=== PATIENT | male | born 1930 | race Asian ===

== ENCOUNTER 2018-05-16 15:56 | Inpatient (IN) | payer OTHER ==
--- NOTE | 2018-05-16 16:10 | PDOC ---
Rapid Medical Evaluation Chief Complaint: Headache Time Seen by Provider: 05/16/18 16:09 Medical Evaluation: 05/16/18 16:09 I have performed a brief in-person evaluation of this patient. The patient presents with a chief complaint of: Severe lower abd pain w/ constipation. H/o cystole, rectocele, hysterectomy Pertinent physical exam findings:sig ttp o lower abd diffusely I have ordered the following:labs, abd XR The patient will proceed to the ED for further evaluation.
[2018-05-16 16:13] VITALS: BMI 26.6
--- NOTE | 2018-05-16 16:13 | PDOC ---
Rapid Medical Evaluation Chief Complaint: Headache Time Seen by Provider: 05/16/18 16:09 Medical Evaluation: 05/16/18 16:11 I have performed a brief in-person evaluation of this patient. The patient presents with a chief complaint of: HEART and nausea today. H/o HTN, HLD, BPH, also on creon for unclear reason Pertinent physical exam findings:BP 188/93, chest/lungs clear, non focal I have ordered the following:labs, CTH The patient will proceed to the ED for further evaluation. Discharge Disposition - Diagnosis Headache Qualifiers: Headache type: unspecified Headache chronicity pattern: acute headache Intractability: intractable Qualified Code(s): R51 - Headache - Referrals - Patient Instructions - Post Discharge Activity
--- NOTE | 2018-05-16 16:58 | PDOC ---
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 He originally had a a hemorrhagic CVA two years prior in [place] then one year later with the same headache and other symptoms onset. He states that he feels the same way today and is concerned that it could be a bleed again. Describes his headache as posterior, sharp, 7/10, and non radiating. His friend at bedside states that his speech is a little bit slurred to her and his legs are weak. He never had any neurosurgical intervention. Denies fevers, chills, nausea, vomiting, diarrhea, constipation, or other symptoms. 05/16/18 17:34 tPA Exclusion checklist 3-4.5h - Thrombolytic Therapy Candidate Is patient eligible for thrombolytic therapy: No - Ineligibility reason(s) Reasons No tPA given: Outside of window - delayed arrival (Woke up at 5 AM. Fell asleep.) NIH Stroke Scale - Last Known Well Date/Time & Onset Date Last Known Well: 05/15/18 (Prior to bed) Time Last Known Well: 22:00 - Initial Evaluation Level of consciousness: Alert Ask patient the month and their age: Answers both correctly Ask patient to open & close eyes; make fist and let go: Obeys both correctly Best gaze (horizontal eye movement): Normal Visual field testing: No visual field loss Facial paresis (Show teeth/raise eyebrows/close eyes tight): Normal symmetrical movement Motor Function: Left Arm: Normal Motor Function: Right Arm: Normal (extends arm 90 (or 45) degrees for 10 seconds without drift Motor Function: Left Leg: Normal (extends leg 30 degrees for 5 seconds without drift) Motor Function: Right Leg: Normal (extends leg 30 degrees for 5 seconds without drift) Limb Ataxia: No ataxia Sensory(Use pinprick test arms,legs,trunk,face/side to side): Normal Best language (Describe picture, name items, read sentences): Mild to moderate aphasia Dysarthria (read several words): Normal articulation Extinction and Inattention: No abnormality (Does not speak romansh but had choker hooker) - Total Score NIH Stroke Scale Score: 1 Past History - Past Medical History Allergies/Adverse Reactions: Allergies Allergy/AdvReac Type Severity Reaction Status Date / Time No Known Allergies Allergy Verified 05/16/18 16:43 COPD: No GI Disorders: Yes ("pancreas") Disorders: Yes (BPH) HTN: Yes Hypercholesterolemia: Yes - Immunization History Immunization Up to Date: Yes - Suicide/Smoking/Psychosocial Hx Smoking History: Never smoked Hx Alcohol Use: No Drug/Substance Use Hx: No Substance Use Type: None Review of Systems - Review of Systems Constitutional: No: Chills, Diaphoresis, Fever HEENTM: Yes: Blurred Vision. No: Tearing Respiratory: No: Cough, Shortness of Breath, Wheezing Cardiac (ROS): No: Chest Pain, Edema, Lightheadedness ABD/GI: Yes: Nausea. No: Diarrhea, Vomiting : No: Burning, Dysuria, Discharge Integumentary: No: Flushing, Lesions, Lumps Neurological: Yes: Headache. No: Numbness, Paresthesia Psychiatric: No: Anxiety, Depression Endocrine: No: Excessive Sweating, Flushing, Intolerance to Heat, Increased Hunger Hematologic/Lymphatic: No: Anemia, Blood Clots, Easy Bleeding *Physical Exam - Vital Signs Last Vital Signs Temp Pulse Resp BP Pulse Ox 98.2 F 64 16 188/93 H 97 05/16/18 16:09 05/16/18 16:09 05/16/18 16:09 05/16/18 16:09 05/16/18 16:09 - Physical Exam General Appearance: Yes: Nourished, Appropriately Dressed. No: Apparent Distress HEENT: positive: EOMI, CHRIS, Normal ENT Inspection, Normal Voice Neck: positive: Trachea midline, Normal Thyroid, Supple. negative: Tender, Rigid Respiratory/Chest: positive: Lungs Clear, Normal Breath Sounds. negative: Chest Tender, Respiratory Distress, Accessory Muscle Use Cardiovascular: positive: Regular Rhythm, Regular Rate Gastrointestinal/Abdominal: positive: Normal Bowel Sounds, Flat, Soft. negative : Tender Lymphatic: negative: Adenopathy, Tenderness Musculoskeletal: positive: Normal Inspection. negative: CVA Tenderness Extremity: positive: Normal Capillary Refill, Normal Inspection, Normal Range of Motion. negative: Tender Integumentary: positive: Normal Color, Dry, Warm Neurologic: positive: Fully Oriented, Alert, Normal Mood/Affect, Normal Response , Motor Strength 5/5, Other (slightly slurred speech) Moderate Sedation - Procedure Monitoring Vital Signs: Procedure Monitoring Vital Signs Temperature 98.2 F 05/16/18 16:09 Pulse Rate 64 05/16/18 16:09 Respiratory Rate 16 05/16/18 16:09 Blood Pressure 188/93 H 05/16/18 16:09 O2 Sat by Pulse Oximetry (%) 97 05/16/18 16:09 ED Treatment Course - LABORATORY CBC & Chemistry Diagram: 05/16/18 16:48 05/16/18 16:48 Medical Decision Making - Medical Decision Making 87 year old with previous CVAs (hemorrhagic) presenting with HTN to 190s-200s and weakness, slurred, speech (stroke scale 1). Head CT negative and we spoke to Maude and came up with a blood pressure upper range goal of 170 ( attempting to strike a balance between HTN emergency treatment and permissive HTN for stroke). Will give metop 5 IV as his pressures are 200s. Signed out to Dr. Young in stable condition, pending call back from medicine team for official sign out but will place admission order. 05/16/18 19:25 *DC/Admit/Observation/Transfer Diagnosis at time of Disposition: Headache Qualifiers: Headache type: unspecified Headache chronicity pattern: acute headache Intractability: intractable Qualified Code(s): R51 - Headache CVA (cerebral vascular accident) Qualifiers: CVA mechanism: unspecified Qualified Code(s): I63.9 - Cerebral infarction, unspecified - Discharge Dispostion Condition at time of disposition: Stable Decision to Admit order: Yes - Referrals - Patient Instructions - Post Discharge Activity
[2018-05-16 17:01] LABS: BASO % 0.8 % (0-2.0); EOS % 1.8 % (0-4.5); HEMATOCRIT 36.3 % (35.4-49); HEMOGLOBIN 12.6 GM/dL (11.7-16.9); LYMPH % 30.6 % (8-40); MCHC 34.8 g/dl (32.0-35.9); MEAN CELL VOLUME 80.6 fl (80-96); MEAN PLT VOLUME 7.7 fl (7.5-11.1); MONO % 5.6 % (3.8-10.2); NEUT % 61.2 % (42.8-82.8); PLATELET COUNT 160 K/MM3 (134-434); RBC 4.51 M/mm3 (4.00-5.60); RDW 14.1 % (11.9-15.9); WHITE BLOOD COUNT 3.7 K/mm3 (4.0-10.0)
--- NOTE | 2018-05-16 17:16 | PDOC ---
Attending Attestation - HPI HPI: 05/16/18 18:33 The patient is a 87 year old male with a significant PMH of hypertension, hyperlipidemia, pancreatic insufficiency, and CVA (hemorrhagic stroke 2 years ago)who presents to the emergency department with a headache since earlier today. The patient reports that he was at home when he woke up from his sleep at 5am this morning experiencing his headache. He reports some associated nausea , vomiting weakness and dizziness with his headache. As per friend at bedside, the patient experienced some slurred speech as well. The patient reports that he took his sleeping pill at 2 am prior to going to sleep. The patient states that he didn't take his usual medications today and has a noted pressure of 209. The patient denies any other symptoms or complaints. PCP: Dr. Hairston - Physicial Exam PE: 05/16/18 18:33 GENERAL: Awake, alert, and fully oriented, in no acute distress HEAD: No signs of trauma EYES: PERRLA, EOMI, sclera anicteric, conjunctiva clear ENT: Auricles normal inspection, hearing grossly normal, nares patent, oropharynx clear without exudates. Moist mucosa NECK: Normal ROM, supple, no lymphadenopathy, JVD, or masses LUNGS: Breath sounds equal, clear to auscultation bilaterally. No wheezes, and no crackles HEART: Regular rate and rhythm, normal S1 and S2, no murmurs, rubs or gallops ABDOMEN: Soft, nontender, normoactive bowel sounds. No guarding, no rebound. No masses EXTREMITIES: Normal range of motion (moving all extremities), no edema. No clubbing or cyanosis. No cords, erythema, or tenderness NEUROLOGICAL: (+)slurred speech.Cranial nerves II through XII grossly intact, can identify objects. Gait deferred SKIN: Warm, Dry, normal turgor, no rashes or lesions noted. Documentation prepared by Vidal Pressley, acting as medical records tech for Xin Cunningham MD. <Vidal Pressley - Last Filed: 05/16/18 18:33> - Resident Resident Name: MaganKarlaeboniezee - ED Attending Attestation I have performed the following: I have examined & evaluated the patient, The case was reviewed & discussed with the resident, I agree w/resident's findings & plan, Exceptions are as noted - Critical Care Time Total Critical Care Time: 35 Critical Care Statement: The care of this patient involved high complexity decision making to prevent further life threatening deterioration of the patient 's condition and/or to evaluate & treat vital organ system(s) failure or risk of failure. - Medical Decision Making 05/16/18 17:16 I, Dr. Xin Cunningham, DO, attest that this document has been prepared under my direction and personally reviewed by me in its entirety. I further attest, that it accurately reflects all work, treatment, procedures and medical decision -making performed by me. 05/16/18 18:23 87yo male with hx of hemorrhagic cva with slurred speech, mao, dizziness today -woke up with the mao -concern for cva vs headache with neuro sx vs hypertensive urgency/emergency -pt did not take bp meds today -outside the window for tpa since patient woke up with symptoms at 5am -pt speaks Turkmen -NIHSS - 1 -labs, head ct, ekg, trop -obs overnight for neuro eval and MRI 05/16/18 20:23 resident discussed the case dr. terry case discussed with [facility] who accepts the patient to service head ct negative for acute pathology labs reviewed <Xin Cunningham - Last Filed: 05/16/18 20:24> Heart Score/ECG Review - ECG Intrepretation Comment:: 05/16/18 19:33 sinus at 60, pvc, 1st degree av block, no acute st/t wave findings <Xin Cunningham - Last Filed: 05/16/18 20:24>
[2018-05-16 17:24] LABS: ALBUMIN 4.3 g/dl (3.4-5.0); ALK PHOS 72 U/L (45-117); ANION GAP 10 MMOL/L (8-16); BILIRUBIN,TOTAL 0.6 mg/dL (0.2-1); BLOOD UREA NITROGEN 18 mg/dL (7-18); CALCIUM 8.9 mg/dL (8.5-10.1); CHLORIDE 100 mmol/L (98-107); CO2 24 mmol/L (21-32); CREATININE 0.8 mg/dL (0.55-1.3); GLUCOSE,RANDOM 96 mg/dL (74-106); POTASSIUM 4.3 mmol/L (3.5-5.1); SGOT/AST 15 U/L (15-37); SGPT/ALT 19 U/L (13-61); SODIUM 134 mmol/L (136-145); TOT PROT 7.7 g/dl (6.4-8.2)
[2018-05-16] MEDS ORDERED: SODIUM CHLORIDE 1,000 ML IV SCH (17:45)
[2018-05-16] MEDS ORDERED: ACETAMINOPHEN 1000 MG/100 ML VIAL (NON FORMULARY) IVPB ONE (18:24)
[2018-05-16] MEDS ORDERED: METOCLOPRAMIDE HCL INJECTION 10 MG/2 ML VIAL IVPUSH ONE (18:24)
[2018-05-16] MEDS ORDERED: METOCLOPRAMIDE HCL INJECTION 10 MG/2 ML VIAL ONE (18:39)
[2018-05-16] MEDS ORDERED: ACETAMINOPHEN INJECTION 100 ML IVPB ONE (18:39)
[2018-05-16 19:11] LABS: INR 1.05 (0.83-1.09); PROTHROMBIN TIME (PATIENT) 12.4 SEC (9.7-13.0)
[2018-05-16] MEDS ORDERED: METOPROLOL TARTRATE 5 MG/5 ML VIAL IVPUSH ONE (19:12)
[2018-05-16 19:33] LABS: ALBUMIN 4.2 g/dl (3.4-5.0); ALK PHOS 72 U/L (45-117); ANION GAP 11 MMOL/L (8-16); BILIRUBIN,TOTAL 0.7 mg/dL (0.2-1); BLOOD UREA NITROGEN 17 mg/dL (7-18); CALCIUM 8.8 mg/dL (8.5-10.1); CHLORIDE 102 mmol/L (98-107); CHOLESTEROL 148 mg/dL (50-200); CO2 23 mmol/L (21-32); CREATININE 0.7 mg/dL (0.55-1.3); GLUCOSE,RANDOM 94 mg/dL (74-106); HDL CHOLESTEROL 53 mg/dL (40-60); POTASSIUM 4.3 mmol/L (3.5-5.1); SGOT/AST 15 U/L (15-37); SGPT/ALT 19 U/L (13-61); SODIUM 136 mmol/L (136-145); TOT PROT 7.6 g/dl (6.4-8.2); TRIGLYCERIDES 69 mg/dL (0-150)
[2018-05-16] MEDS ORDERED: METOPROLOL TARTRATE 5 MG/5 ML VIAL ONE (19:38)
--- NOTE | 2018-05-16 19:58 | PN ---
Teaching Attending Note Name of Resident: Justin Chaudhry ATTENDING PHYSICIAN STATEMENT I saw and evaluated the patient. I reviewed the resident's note and discussed the case with the resident. I agree with the resident's findings and plan as documented. SUBJECTIVE: Seen and examined; please see resident note for further historical details. This is a 87 y/o Indonesian-[place] Male presenting with headache, dizziness, and slurred speech at 5AM that has since resolved. He has a history of HTN, HLD, Mancreatic insufficiency, BP, and hemorrhagic CVA in [place]. His sx were associated with nausea and vomitting. The slurred speech has resolved and his symptoms are at baseline. He feels weak. He told the ER that these were the presenting symptoms with his CVA in [place]. Has not been here before so we do not have any prior neurological workup, etc. He was noted at being hypertensive to 209 and was confirmed to not have taken his home BP med ( Losartan 50mg PO QD). He was given IV lopressor in the ER and is slightly bradycardic; BP now in the 160s on manual recheck preformed by my resident. He will be admitted to the floor. 10 sys ROS done and negative aside from HPI PMH and PSH reviewed FH asked and noncontributory Socially he is generally compliant with tx and does not smoke or abuse alcohol Medication list reviewed OBJECTIVE: VS, labs, imaging pending NAD, AAO, resting comfortably in bed NC AT EOMI PERRLA CN2-12 wnl, no FND, NIH 0. Moving all 4 extremities with 5/5 strength. No distortions in sensorium NT ND +BS No edema, no JVD No bruises, rashes, abrasions. Normal behavior, appropriate affect Labs are unremarkable aside from slightly low WBC at 3.7. Rest are pending CT head negative for any bleed Echo, dopplers, etc. pending ASSESSMENT AND PLAN: Mr. Leigh presents to our service for dizziness/HEART/slurred speech resolved this morning; found to be hypertensive, symptoms resolved. Now 160s-180s in the ER after treatment. Suspect HTN Emerg vs. TIA 1) Slurred Speech with n/v -Suspect TIA vs. HTN emergency; will obtain stereotyped TIA workup including MRI , echo, dopplers. PT consult. Passed swallow evaluation. Would have been well outside the window for tPA given 5AM sx. Passed bedside swallow and currently taking PO. -Telemetry, neuro checks, seizure precautions. Can consider neuro consult if deemed needed -For HTN emergency will place on home Losartan; only is on 50 so can increase to 100. -Checking lipids, A1c, TSH, B12, Thiamine, trop -Continue home ASA 2) Transient bradycardia -Got 5 Lopressor in ER then this was seen. Monitor on tele; avoid further AV natalia blocking agents until this is resolved. 3) HTN hx -Per #1 4) HLD -Continue home meds; lipids per #1 5) Pancreatic Insufficiency -Noted hx; no sx now. Monitor 6) Hx hemorrhagic CVA -Negative CT now; avoiding AC for now with SCDs for dvt px. On ASA at home so can continue Full Code
--- NOTE | 2018-05-16 20:22 | PDOC ---
*Physical Exam - Vital Signs Last Vital Signs Temp Pulse Resp BP Pulse Ox 98.2 F 60 20 176/91 H 99 05/16/18 16:09 05/16/18 19:45 05/16/18 19:45 05/16/18 19:45 05/16/18 19:45 - Physical Exam Comments: 05/16/18 20:22 The patient was signed to me by Dr Garcia. Will follow with admitting team for admission. BP medication given. 05/16/18 20:23 ED Treatment Course - LABORATORY CBC & Chemistry Diagram: 05/16/18 16:48 05/16/18 17:48 - ADDITIONAL ORDERS Additional order review: Laboratory Results 05/16/18 05/16/18 05/16/18 17:48 17:48 16:48 PT with INR 12.40 INR 1.05 Sodium 136 134 L Potassium 4.3 4.3 Chloride 102 100 Carbon Dioxide 23 24 Anion Gap 11 10 BUN 17 18 Creatinine 0.7 0.8 Creat Clearance w eGFR > 60 > 60 Random Glucose 94 96 Calcium 8.8 8.9 Total Bilirubin 0.7 0.6 AST 15 15 ALT 19 19 Alkaline Phosphatase 72 72 Creatine Kinase 50 Troponin I < 0.02 Total Protein 7.6 7.7 Albumin 4.2 4.3 Triglycerides 69 Cholesterol 148 Total LDL Cholesterol 82 HDL Cholesterol 53 05/16/18 16:48 RBC 4.51 MCV 80.6 MCHC 34.8 RDW 14.1 MPV 7.7 Neutrophils % 61.2 Lymphocytes % 30.6 Monocytes % 5.6 Eosinophils % 1.8 Basophils % 0.8 - Medications Given in the ED: ED Medications Discontinued Medications Generic Name Dose Route Start Last Admin Trade Name Trevor PRN Reason Stop Dose Admin Acetaminophen 1,000 mg 05/16/18 18:24 05/16/18 18:55 Ofirmev Injection - IVPB 05/16/18 18:25 1,000 mg ONCE ONE Administration Metoclopramide HCl 10 mg 05/16/18 18:24 05/16/18 18:55 Reglan Injection - IVPUSH 05/16/18 18:25 10 mg ONCE ONE Administration *DC/Admit/Observation/Transfer Diagnosis at time of Disposition: Headache Qualifiers: Headache type: unspecified Headache chronicity pattern: acute headache Intractability: intractable Qualified Code(s): R51 - Headache CVA (cerebral vascular accident) Qualifiers: CVA mechanism: unspecified Qualified Code(s): I63.9 - Cerebral infarction, unspecified - Discharge Dispostion Condition at time of disposition: Stable - Referrals - Patient Instructions - Post Discharge Activity
--- NOTE | 2018-05-16 21:12 | HP ---
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 Previous medical records indicate thjat he has a history of pancreatic insufficiency and hyperlipidemia however he has adamantly denied having these ailments via tree farmer. Pt endorses that these symptoms woke him up from sleep. He endorses that he experienced these very similar symptoms at the time of his previous stroke and was informed to immediately go to hospital. Pt describes his headache as posterior, sharp in nature, 7/10 in severity, and non radiating. Patient has endorsed to ED staff earlier today that he didn't take his usual medications today and had a noted a systolic pressure of 209. All of symptoms have resolved. ER course was notable for: (1) (2) (3) Recent Travel: PAST MEDICAL HISTORY: per hpi PAST SURGICAL HISTORY: DENIES any surgery Social History: Smoking: Use to smoke 2 packs per day for 30 years. Quit 35 years ago. Alcohol: denies Drugs: denies Family History: Allergies No Known Allergies Allergy (Verified 05/16/18 16:43) HOME MEDICATIONS: Home Medications Medication Instructions Recorded Aspirin 81 mg PO DAILY 05/16/18 Celecoxib 200 mg PO DAILY 05/16/18 Docusate Sodium 100 mg PO DAILY 05/16/18 Lipase/Protease/Amylase [Konstantin Alejandre 1 cap PO TIDCM 05/16/18 6,000 Units Capsule] Losartan Potassium 50 mg PO DAILY 05/16/18 Simvastatin 20 mg PO HS 05/16/18 Tamsulosin HCl 0.4 mg PO DAILY 05/16/18 Tamsulosin HCl [Flomax] 0.4 mg PO DAILY 05/16/18 REVIEW OF SYSTEMS CONSTITUTIONAL: Absent: fever, chills, diaphoresis, generalized weakness, malaise, loss of appetite, weight change HEENT: PRESENT: visual changes CARDIOVASCULAR: Absent: chest pain, syncope, palpitations, irregular heart rate, lightheadedness , peripheral edema RESPIRATORY: Absent: cough, shortness of breath, dyspnea with exertion, orthopnea, wheezing, stridor, hemoptysis GASTROINTESTINAL: Absent: abdominal pain, abdominal distension, nausea, vomiting, diarrhea, constipation, melena, hematochezia GENITOURINARY: Absent: dysuria, frequency, urgency, hesitancy, hematuria, flank pain, genital pain MUSCULOSKELETAL: Absent: myalgia, arthralgia, joint swelling, back pain, neck pain SKIN: Absent: rash, itching, pallor HEMATOLOGIC/IMMUNOLOGIC: Absent: easy bleeding, easy bruising, lymphadenopathy, frequent infections ENDOCRINE: Absent: unexplained weight gain, unexplained weight loss, heat intolerance, cold intolerance NEUROLOGIC: PRESENT headache, dizzinesS PSYCHIATRIC: Absent: anxiety, depression, suicidal or homicidal ideation, hallucinations. PHYSICAL EXAMINATION Vital Signs - 24 hr 05/16/18 05/16/18 05/16/18 16:09 18:30 19:30 Temperature 98.2 F Pulse Rate 64 Pulse Rate [ 69 63 Apical] Respiratory 16 20 18 Rate Blood Pressure 188/93 H Blood Pressure 209/96 H 186/89 H [Left Arm] O2 Sat by Pulse 97 96 97 Oximetry (%) 05/16/18 05/16/18 05/16/18 19:45 20:33 20:34 Temperature Pulse Rate Pulse Rate [ 60 58 L Apical] Respiratory 20 20 Rate Blood Pressure 187/88 H Blood Pressure 176/91 H 187/88 H [Left Arm] O2 Sat by Pulse 99 97 Oximetry (%) GENERAL: Awake Alert HEAD: Normal with no signs of trauma. EYES: EOMI NECK: Supple LUNGS: CTA B/L HEART: Bradycardia No MRG S1S2 ABDOMEN: Soft, NDNT MUSCULOSKELETAL: FROM throughout UPPER EXTREMITIES: No CCE LOWER EXTREMITIES: No CCE NEUROLOGICAL: Cranial nerves II-XII intact. Normal speech. Normal gait. PSYCHIATRIC: Cooperative. Good eye contact. Appropriate mood and affect. SKIN:No rashes or bruises Laboratory Results - last 24 hr 05/16/18 05/16/18 05/16/18 16:48 16:48 17:48 WBC 3.7 L RBC 4.51 Hgb 12.6 Hct 36.3 MCV 80.6 MCH 28.0 MCHC 34.8 RDW 14.1 Plt Count 160 MPV 7.7 Absolute Neuts (auto) 2.3 Neutrophils % 61.2 Lymphocytes % 30.6 Monocytes % 5.6 Eosinophils % 1.8 Basophils % 0.8 Nucleated RBC % 0 PT with INR 12.40 INR 1.05 Sodium 134 L Potassium 4.3 Chloride 100 Carbon Dioxide 24 Anion Gap 10 BUN 18 Creatinine 0.8 Creat Clearance w eGFR > 60 Random Glucose 96 Calcium 8.9 Total Bilirubin 0.6 AST 15 ALT 19 Alkaline Phosphatase 72 Creatine Kinase Troponin I Total Protein 7.7 Albumin 4.3 Triglycerides Cholesterol Total LDL Cholesterol HDL Cholesterol 05/16/18 17:48 WBC RBC Hgb Hct MCV MCH MCHC RDW Plt Count MPV Absolute Neuts (auto) Neutrophils % Lymphocytes % Monocytes % Eosinophils % Basophils % Nucleated RBC % PT with INR INR Sodium 136 Potassium 4.3 Chloride 102 Carbon Dioxide 23 Anion Gap 11 BUN 17 Creatinine 0.7 Creat Clearance w eGFR > 60 Random Glucose 94 Calcium 8.8 Total Bilirubin 0.7 AST 15 ALT 19 Alkaline Phosphatase 72 Creatine Kinase 50 Troponin I < 0.02 Total Protein 7.6 Albumin 4.2 Triglycerides 69 Cholesterol 148 Total LDL Cholesterol 82 HDL Cholesterol 53 ASSESSMENT/PLAN: Pt is an 87 y/o gentleman with a significant past medical history of HTN, HLD, pancreatic insufficiency ,and 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 # TIA vs Hypertensive Emergency - Continue home med Losartan -Hold aspirin -Monitor on tele -Goal to have BP < 160/90 as he was trending in the 160's-180's in ED - Will go ahead and get MRI in morning -Check B12 A1C, lipids, TSH, -Echo/Carotid -Troponin -Consult Pt -Passed bedisde swallow eval in Ed -Neuro checks Q4H, Seizure precautions #Uncontrolled HTN Refer to number 1 #History Hemorrhagic Stroke -avoid lovenox in light of previous history of hemmorhagic stroke #Pancreatic insufficiency #Leukepenia -Trend WBC. If worsens considers peripheral smear and outpatient referral. FEN: [id number]@42cc hr Monitor Electrolytes Sodium Controlled Diet DVT ppx: SCD's Dispo: Tele Visit type - Emergency Visit Emergency Visit: Yes ED Registration Date: 05/16/18 Care time: The patient presented to the Emergency Department on the above date and was hospitalized for further evaluation of their emergent condition. - New Patient This patient is new to me today: Yes Date on this admission: 05/17/18 - Critical Care Critical Care patient: No
[2018-05-16] MEDS: LOSARTAN POTASSIUM 50 MG TABLET (FP) PO SCH (23:19)
[2018-05-16 23:26] LABS: URINE APPEARANCE CLEAR; URINE BILIRUBIN NEGATIVE (<2.0 mg/dL); URINE COLOR LTYELLOW; URINE GLUCOSE (UA) NEGATIVE (NEGATIVE); URINE KETONE NEGATIVE (NEGATIVE); URINE LEUK ESTERASE NEGATIVE (NEGATIVE); URINE NITRITE NEGATIVE (NEGATIVE); URINE PROTEIN NEGATIVE (NEGATIVE); URINE UROBILINOGEN NEGATIVE mg/dL (0.2-1.0)
[2018-05-17 07:48] LABS: BASO % 0.9 % (0-2.0); EOS % 3.6 % (0-4.5); HEMATOCRIT 35.1 % (35.4-49); HEMOGLOBIN 11.4 GM/dL (11.7-16.9); LYMPH % 36.1 % (8-40); MCH 26.6 pg (25.7-33.7); MCHC 32.4 g/dl (32.0-35.9); MEAN PLT VOLUME 7.9 fl (7.5-11.1); MONO % 6.6 % (3.8-10.2); NEUT % 52.8 % (42.8-82.8); PLATELET COUNT 132 K/MM3 (134-434); RBC 4.28 M/mm3 (4.00-5.60); RDW 13.8 % (11.9-15.9); WHITE BLOOD COUNT 2.7 K/mm3 (4.0-10.0)
[2018-05-17 08:04] LABS: INR 1.08 (0.83-1.09); PROTHROMBIN TIME (PATIENT) 12.7 SEC (9.7-13.0)
[2018-05-17 08:07] LABS: ACTIVATED PTT 33.7 SECONDS (25.2-36.5)
[2018-05-17 08:50] LABS: ANION GAP 7 MMOL/L (8-16); BLOOD UREA NITROGEN 16 mg/dL (7-18); CALCIUM 8.3 mg/dL (8.5-10.1); CHLORIDE 104 mmol/L (98-107); CHOLESTEROL 137 mg/dL (50-200); CO2 25 mmol/L (21-32); CREATININE 0.7 mg/dL (0.55-1.3); GLUCOSE,RANDOM 73 mg/dL (74-106); HDL CHOLESTEROL 47 mg/dL (40-60); MAGNESIUM 2.1 mg/dL (1.8-2.4); PHOSPHOROUS 2.9 mg/dL (2.5-4.9); POTASSIUM 4.2 mmol/L (3.5-5.1); SODIUM 136 mmol/L (136-145); TRIGLYCERIDES 59 mg/dL (0-150)
[2018-05-17] MEDS: ASPIRIN 81 MG CHEWABLE TABLETS PO SCH (09:17)
[2018-05-17] MEDS: LOSARTAN POTASSIUM 50 MG TABLET (FP) PO SCH (09:17)
--- NOTE | 2018-05-17 10:53 | CONSULT ---
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 Previous medical records indicates that he has a history of pancreatic insufficiency and hyperlipidemia however he had adamantly denied having these ailments via computerized machine fabric cutter per notes. Pt endorsed that these symptoms woke him up from sleep. He endorsed that he experienced these very similar symptoms at the time of his previous stroke and was informed to immediately go to hospital. Pt described his headache as posterior, sharp in nature, 7/10 in severity, and non radiating. Patient has endorsed to ED staff that he didn't take his usual medications and had a noted a systolic pressure of 209. All of symptoms have resolved and is awaiting MRI brain, discussed with nurse, will call to try to expedite, may be able to discharge if MRI negative, currently no focal deficits. PAST SURGICAL HISTORY: DENIES any surgery Social History: Smoking: Use to smoke 2 packs per day for 30 years. Quit 35 years ago. Alcohol: denies Drugs: denies Allergies No Known Allergies Allergy (Verified 05/16/18 16:43) HOME MEDICATIONS: Home Medications Medication Instructions Recorded Aspirin 81 mg PO DAILY 05/16/18 Celecoxib 200 mg PO DAILY 05/16/18 Docusate Sodium 100 mg PO DAILY 05/16/18 Lipase/Protease/Amylase [Creon Dr 1 cap PO TIDCM 05/16/18 6,000 Units Capsule] Losartan Potassium 50 mg PO DAILY 05/16/18 Simvastatin 20 mg PO HS 05/16/18 Tamsulosin HCl 0.4 mg PO DAILY 05/16/18 Tamsulosin HCl [Flomax] 0.4 mg PO DAILY 05/16/18 REVIEW OF SYSTEMS CONSTITUTIONAL: Absent: fever, chills, diaphoresis, generalized weakness, malaise, loss of appetite, weight change HEENT: PRESENT: visual changes CARDIOVASCULAR: Absent: chest pain, syncope, palpitations, irregular heart rate, lightheadedness , peripheral edema RESPIRATORY: Absent: cough, shortness of breath, dyspnea with exertion, orthopnea, wheezing, stridor, hemoptysis GASTROINTESTINAL: Absent: abdominal pain, abdominal distension, nausea, vomiting, diarrhea, constipation, melena, hematochezia GENITOURINARY: Absent: dysuria, frequency, urgency, hesitancy, hematuria, flank pain, genital pain MUSCULOSKELETAL: Absent: myalgia, arthralgia, joint swelling, back pain, neck pain SKIN: Absent: rash, itching, pallor HEMATOLOGIC/IMMUNOLOGIC: Absent: easy bleeding, easy bruising, lymphadenopathy, frequent infections ENDOCRINE: Absent: unexplained weight gain, unexplained weight loss, heat intolerance, cold intolerance NEUROLOGIC: PRESENT headache, dizzinesS PSYCHIATRIC: Absent: anxiety, depression, suicidal or homicidal ideation, hallucinations. PHYSICAL EXAMINATION Vital Signs - 24 hr 05/16/18 05/16/18 05/16/18 19:45 20:33 20:34 Temperature Pulse Rate Pulse Rate [ 60 58 L Apical] Respiratory 20 20 Rate Blood Pressure 187/88 H Blood Pressure 176/91 H 187/88 H [Left Arm] O2 Sat by Pulse 99 97 Oximetry (%) 05/17/18 05/17/18 05/17/18 01:03 02:00 06:00 Temperature 97.5 F L 97.5 F L 97.7 F Pulse Rate 52 L 42 L 45 L Pulse Rate [ Apical] Respiratory 18 18 20 Rate Blood Pressure 142/71 140/60 163/73 Blood Pressure [Left Arm] O2 Sat by Pulse 93 L Oximetry (%) GENERAL: Awake Alert HEAD: Normal with no signs of trauma. EYES: EOMI NECK: Supple LUNGS: CTA B/L HEART: Bradycardia No MRG S1S2 ABDOMEN: Soft, NDNT MUSCULOSKELETAL: FROM throughout UPPER EXTREMITIES: No CCE LOWER EXTREMITIES: No CCE NEUROLOGICAL: Cranial nerves II-XII intact. Normal speech. Moves all extremities equally, sensory intact, finger to nose normal PSYCHIATRIC: Cooperative. Good eye contact. Appropriate mood and affect. SKIN:No rashes or bruises 05/16/18 05/16/18 05/16/18 16:48 16:48 17:48 WBC 3.7 L RBC 4.51 Hgb 12.6 Hct 36.3 MCV 80.6 MCHC 34.8 RDW 14.1 Plt Count 160 Neutrophils % 61.2 Lymphocytes % 30.6 Monocytes % 5.6 Eosinophils % 1.8 Basophils % 0.8 INR 1.05 Sodium 134 L Potassium 4.3 Chloride 100 Carbon Dioxide 24 Anion Gap 10 BUN 18 Creatinine 0.8 Blood Type Antibody Screen 05/16/18 05/16/18 05/17/18 17:48 17:48 06:05 WBC RBC Hgb Hct MCV MCHC RDW Plt Count Neutrophils % Lymphocytes % Monocytes % Eosinophils % Basophils % INR Sodium 136 Potassium 4.3 Chloride 102 Carbon Dioxide 23 Anion Gap 11 BUN 17 Creatinine 0.7 Blood Type A POSITIVE A POSITIVE Antibody Screen Negative 05/17/18 05/17/18 05/17/18 06:05 06:05 06:05 WBC 2.7 L RBC 4.28 Hgb 11.4 L Hct 35.1 L MCV 82.0 MCHC 32.4 RDW 13.8 Plt Count 132 L Neutrophils % 52.8 Lymphocytes % 36.1 Monocytes % 6.6 Eosinophils % 3.6 D Basophils % 0.9 INR 1.08 Sodium 136 Potassium 4.2 Chloride 104 Carbon Dioxide 25 Anion Gap 7 L BUN 16 Creatinine 0.7 Blood Type Antibody Screen ASSESSMENT/PLAN: Pt is an 87 y/o gentleman with a significant past medical history of HTN 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 Possibly hypertensive urgency, admitted for MRI to r/o CVA. Goal bp < 160/90 for now. Echo, carotid ordered as well. On tele monitoring. Discussed with nurse, hope to have MRI completed today, she will speak with radiology.
--- NOTE | 2018-05-17 15:00 | PN ---
Progress Note (short form) - Note Progress Note: asymptomatic. states he feels good and wants to go home. denies CP, SOB, fever, chills, N/V/C/D, blurred vision or slurred speech Current Medications Generic Name Dose Route Start Last Admin Trade Name Trevor PRN Reason Stop Dose Admin Aspirin 81 mg 05/17/18 10:00 05/17/18 09:17 Asa - PO 81 mg DAILY STANLEY Administration Sodium Chloride 1,000 mls @ 42 mls/hr 05/16/18 17:45 05/16/18 18:55 Normal Saline - IV 42 mls/hr ASDIR STANLEY Administration Losartan Potassium 50 mg 05/16/18 22:15 05/17/18 09:17 Cozaar - PO 50 mg DAILY STANLEY Administration Last Vital Signs Temp Pulse Resp BP Pulse Ox 97.4 F L 49 L 18 145/74 93 L 05/17/18 14:00 05/17/18 14:00 05/17/18 14:00 05/17/18 14:00 05/17/18 10:00 General NAD CV S1 S2 RRR no murmur/rub/gallop Lungs CTA B/L no wheezing/rales/rhonchi Abdomen soft NT/ND Neuro CN II-XII grossly intact, strength and sensation equal in all 4 extremities, negative pronator drift CBCD WBC 2.7 K/mm3 (4.0-10.0) L 05/17/18 06:05 RBC 4.28 M/mm3 (4.00-5.60) 05/17/18 06:05 Hgb 11.4 GM/dL (11.7-16.9) L 05/17/18 06:05 Hct 35.1 % (35.4-49) L 05/17/18 06:05 MCV 82.0 fl (80-96) 05/17/18 06:05 MCHC 32.4 g/dl (32.0-35.9) 05/17/18 06:05 RDW 13.8 % (11.9-15.9) 05/17/18 06:05 Plt Count 132 K/MM3 (134-434) L 05/17/18 06:05 MPV 7.9 fl (7.5-11.1) 05/17/18 06:05 CMP Sodium 136 mmol/L (136-145) 05/17/18 06:05 Potassium 4.2 mmol/L (3.5-5.1) 05/17/18 06:05 Chloride 104 mmol/L (98-107) 05/17/18 06:05 Carbon Dioxide 25 mmol/L (21-32) 05/17/18 06:05 Anion Gap 7 MMOL/L (8-16) L 05/17/18 06:05 BUN 16 mg/dL (7-18) 05/17/18 06:05 Creatinine 0.7 mg/dL (0.55-1.3) 05/17/18 06:05 Creat Clearance w eGFR > 60 (>60) 05/17/18 06:05 Calcium 8.3 mg/dL (8.5-10.1) L 05/17/18 06:05 Total Bilirubin 0.7 mg/dL (0.2-1) 05/16/18 17:48 AST 15 U/L (15-37) 05/16/18 17:48 ALT 19 U/L (13-61) 05/16/18 17:48 Alkaline Phosphatase 72 U/L (45-117) 05/16/18 17:48 Total Protein 7.6 g/dl (6.4-8.2) 05/16/18 17:48 Albumin 4.2 g/dl (3.4-5.0) 05/16/18 17:48 A/P 87yo M with PMH HTN, dyslipidemia, Hemorrhagic CVA, BPH and pancreas insufficiency presented to the ER with HEART, dizzyness and slurred speech that started at 5AM and since resolved. Pt BP was found to be 209/96 1. HTN emergency- r/o CVA. symptoms have resolved. and BP improved since re- started on home medications. not TPA candidate since out of window and symptoms resolved. currently no neurological deficits. will check MRI brain, carotid doppler, echo, neuro consulted. Speech and swallow and PT. cardiac monitoring. cont asa/statin 2. asymptomatic bradycardia- responds to light activity. resting HR to 55. states he was told this in [place]. echo pending 3. BPH- cont flomax 4. pancreas insuff- cont creon 5. DVT ppx- EAM 6. spoke with present at bedside. all questions answered. verbalized understanding and agreement in plan. agreeable to remaining monitored for another 24H Visit type - Emergency Visit Emergency Visit: Yes ED Registration Date: 05/16/18 Care time: The patient presented to the Emergency Department on the above date and was hospitalized for further evaluation of their emergent condition. - New Patient This patient is new to me today: Yes Date on this admission: 05/17/18 - Critical Care Critical Care patient: No - Discharge Referral Referred to [facility] Med P.C.: No
--- NOTE | 2018-05-17 17:16 | EKG ---
Test Reason : Blood Pressure : / mmHG Vent. Rate : 060 BPM Atrial Rate : 060 BPM P-R Int : 208 ms QRS Dur : 094 ms QT Int : 430 ms P-R-T Axes : 004 046 054 degrees QTc Int : 430 ms POOR DATA QUALITY, INTERPRETATION MAY BE ADVERSELY AFFECTED SINUS RHYTHM WITH OCCASIONAL PREMATURE VENTRICULAR COMPLEXES OTHERWISE NORMAL ECG NO PREVIOUS ECGS AVAILABLE Confirmed by MD CHARLES, PALAK ([id number]) on 05/17/2018 5:15:38 PM Referred By: Confirmed By:PALAK SOTO MD
[2018-05-17] MEDS ORDERED: PT OWN MED DRAWER 7, Y5N ONE (17:57)
[2018-05-17] MEDS: LIPASE/PROTEASE/AMYLASE 6,000 UNIT CAPSULE PO SCH (18:54)
[2018-05-17] MEDS ORDERED: ACETAMINOPHEN 325 MG TABLET (FP) PO PRN (20:40)
[2018-05-17] MEDS: ATORVASTATIN CA 10 MG TABLET (FP) PO SCH (21:15)
[2018-05-17] MEDS ORDERED: PATIENT'S OWN MEDICATION (NON-FORMULARY) (Simvastatin [Simvastatin] 20 MG) PO SCH (22:00)
[2018-05-18 06:50] LABS: HEMATOCRIT 36.8 % (35.4-49); HEMOGLOBIN 11.9 GM/dL (11.7-16.9); MCH 26.4 pg (25.7-33.7); MCHC 32.3 g/dl (32.0-35.9); MEAN CELL VOLUME 81.9 fl (80-96); MEAN PLT VOLUME 7.9 fl (7.5-11.1); PLATELET COUNT 143 K/MM3 (134-434); WHITE BLOOD COUNT 3.3 K/mm3 (4.0-10.0)
[2018-05-18] MEDS ORDERED: PT OWN MED DRAWER 7, Y5N ONE (08:46)
[2018-05-18] MEDS: LIPASE/PROTEASE/AMYLASE 6,000 UNIT CAPSULE PO SCH ×4 (08:50→17:23)
[2018-05-18] MEDS: TAMSULOSIN HCL 0.4 MG CAP PO SCH (08:59)
[2018-05-18] MEDS: ASPIRIN 81 MG CHEWABLE TABLETS PO SCH (09:00)
[2018-05-18] MEDS: LOSARTAN POTASSIUM 50 MG TABLET (FP) PO SCH (09:00)
[2018-05-18] MEDS: amLODIPine BESYLATE 5 MG TABLET (FP) PO SCH (09:00)
--- NOTE | 2018-05-18 13:00 | PN ---
Teaching Attending Note Name of Resident: Adrianne Pillai ATTENDING PHYSICIAN STATEMENT I saw and evaluated the patient. I reviewed the resident's note and discussed the case with the resident. I agree with the resident's findings and plan as documented. SUBJECTIVE:asymptomatic. denies Cp, SOB, fever, chills, N/V/C/D High BP last night. states its high when he cant sleep. OBJECTIVE: Last Vital Signs Temp Pulse Resp BP Pulse Ox 98.0 F 58 L 18 168/85 93 L 05/18/18 10:00 05/18/18 12:00 05/18/18 12:05/18/18 12:05/17/18 10:00 General NAD CV S1 S2 + Neuro CN grossly intact. strength/sensation equal in all 4 extremities ASSESSMENT AND PLAN: 87yo M with PMH HTN, dyslipidemia, Hemorrhagic CVA, BPH and pancreas insufficiency presented to the ER with HEART, dizzyness and slurred speech that started at 5AM and since resolved. Pt BP was found to be 209/96 1. HTN emergency- r/o CVA. symptoms have resolved. BP improved but above goal. will start norvasc. cont losartan. MRI and carotid done and awaiting read. no events noted on tele monitor. neuro consulted. Speech and swallow and PT. cardiac monitoring. cont asa/statin 2. asymptomatic bradycardia- Repeated activity today and went up to 63. will check echo. 3. BPH- cont flomax 4. pancreas insuff- cont creon 5. DVT ppx- EAM 6. would beenfit from echo prior to d/c given the HTN emergency and bradycardia. possible d/c home tomorrow pending result of test
--- NOTE | 2018-05-18 14:19 | PN ---
Physical Exam: SUBJECTIVE: Patient seen and examined at bedside. no acute events overnight- patient states he is feeling well and is no longer having any symptoms such as nausea/dizziness or blurred vision; he denies any CP/SOB/N/V fevers or chills. patient was bradycardic overnight however he has been told this before back in [place] that he has a slow heart rate OBJECTIVE: Vital Signs Period Temp Pulse Resp BP Sys/Salcido Pulse Ox Last 24 Hr 97.8 F-98.1 F 41-58 16-20 148-182/63-93 GENERAL: The patient is awake, alert, and fully oriented, in no acute distress. EYES: PERRL, extraocular movements intact, no scleral icterus NECK: no JVD< no lymphadenopathy LUNGS: CTA B/L; no rales, rhonchi or wheezing HEART: Regular rate and rhythm, S1, S2 without murmur, rub or gallop. ABDOMEN: Soft, nontender, nondistended, normoactive bowel sounds, no guarding, no rebound, no hepatosplenomegaly, no masses. EXTREMITIES: 2+ pulses, warm, well-perfused, no edema. NEUROLOGICAL: Cranial nerves II through XII grossly intact. Normal speech, gait not observed.5/5 strength B/L; sensation intact B/L SKIN: Warm, dry, normal turgor, no rashes or lesions noted Laboratory Results - last 24 hr 05/17/18 05/18/18 05/18/18 21:08 05:30 06:00 WBC 3.3 L RBC 4.50 Hgb 11.9 Hct 36.8 MCV 81.9 MCH 26.4 MCHC 32.3 RDW 14.0 Plt Count 143 MPV 7.9 POC Glucometer 121 89 Active Medications Generic Name Dose Route Start Last Admin Trade Name Freq PRN Reason Stop Dose Admin Acetaminophen 650 mg 05/17/18 20:40 05/17/18 21:16 Tylenol - PO 650 mg Q12H PRN Administration Fever Or Pain Amlodipine Besylate 5 mg 05/18/18 10:00 05/18/18 09:00 Norvasc - PO 5 mg DAILY STANLEY Administration Aspirin 81 mg 05/17/18 10:00 05/18/18 09:00 Asa - PO 81 mg DAILY STANLEY Administration Atorvastatin Calcium 10 mg 05/17/18 22:00 05/17/18 21:15 Lipitor - PO 10 mg HS STANLEY Administration Losartan Potassium 50 mg 05/16/18 22:15 05/18/18 09:00 Cozaar - PO 50 mg DAILY STANLEY Administration Pancrelipase 1 cap 05/17/18 17:30 05/18/18 11:[address] 6,000 Units Capsule PO 1 cap TIDCM STANLEY Administration Tamsulosin HCl 0.4 mg 05/18/18 10:00 05/18/18 08:59 Flomax - PO 0.4 mg DAILY STANLEY Administration ASSESSMENT/PLAN: Pt is an 87 y/o male with a significant past medical history of HTN, HLD, pancreatic insufficiency ,and 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, hemorrhagic) presented to [facility] due to blurry vision, headache, nausea, slurred speech and vomiting likely 2/2 hypertensive emergency # TIA vs Hypertensive Emergency - Continue home med Losartan -ASA 81 daily -Monitor on tele -Goal to have BP < 160/90 as he was trending in the 160's-180's in ED - MRI done; final read pending -Echo pending for tomorrow -Dopplers done- final read pending -Lipitor 10 daily #Uncontrolled HTN -c/w cozaar 50 daily -added Norvasc 5 daily -monitor BP #Bradycardia -patient has been told in the past hes bradycardic -responds appropriately to exercise -monitor on tele #History Hemorrhagic Stroke -ASA 81 daily #Pancreatic insufficiency -creon 1 cap TID FEN: not on fluids Monitor Electrolytes Sodium Controlled Diet DVT ppx: SCD's Problem List - Problems (1) CVA (cerebral vascular accident) Code(s): I63.9 - CEREBRAL INFARCTION, UNSPECIFIED Qualifiers: CVA mechanism: unspecified Qualified Code(s): I63.9 - Cerebral infarction, unspecified Visit type - Emergency Visit Emergency Visit: Yes ED Registration Date: 05/16/18 Care time: The patient presented to the Emergency Department on the above date and was hospitalized for further evaluation of their emergent condition. - New Patient This patient is new to me today: Yes Date on this admission: 05/18/18 - Critical Care Critical Care patient: No
[2018-05-18] MEDS ORDERED: MELATONIN 5 MG TABLETS PO ONE (20:37)
[2018-05-18] MEDS: ATORVASTATIN CA 10 MG TABLET (FP) PO SCH (21:29)
[2018-05-19 06:57] LABS: HEMATOCRIT 36.8 % (35.4-49); HEMOGLOBIN 11.8 GM/dL (11.7-16.9); MCH 26.3 pg (25.7-33.7); MCHC 32.2 g/dl (32.0-35.9); MEAN CELL VOLUME 81.6 fl (80-96); MEAN PLT VOLUME 7.9 fl (7.5-11.1); PLATELET COUNT 147 K/MM3 (134-434); RBC 4.51 M/mm3 (4.00-5.60); RDW 14.1 % (11.9-15.9); WHITE BLOOD COUNT 3.2 K/mm3 (4.0-10.0)
[2018-05-19 07:13] LABS: ANION GAP 8 MMOL/L (8-16); BLOOD UREA NITROGEN 21 mg/dL (7-18); CALCIUM 8.7 mg/dL (8.5-10.1); CHLORIDE 102 mmol/L (98-107); CO2 25 mmol/L (21-32); CREATININE 0.8 mg/dL (0.55-1.3); GLUCOSE,RANDOM 87 mg/dL (74-106); MAGNESIUM 2.1 mg/dL (1.8-2.4); PHOSPHOROUS 3.6 mg/dL (2.5-4.9); POTASSIUM 4.4 mmol/L (3.5-5.1); SODIUM 135 mmol/L (136-145)
[2018-05-19] MEDS ORDERED: PT OWN MED DRAWER 7, Y5N ONE ×3 (08:03→12:15)
[2018-05-19] MEDS: LIPASE/PROTEASE/AMYLASE 6,000 UNIT CAPSULE PO SCH ×2 (08:08→12:16)
--- NOTE | 2018-05-19 08:57 | PN ---
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 Previous medical records indicates that he has a history of pancreatic insufficiency and hyperlipidemia however he had adamantly denied having these ailments via visual display associate per notes. Pt endorsed that these symptoms woke him up from sleep. He endorsed that he experienced these very similar symptoms at the time of his previous stroke and was informed to immediately go to hospital. Pt described his headache as posterior, sharp in nature, 7/10 in severity, and non radiating. Patient has endorsed to ED staff that he didn't take his usual medications and had a noted a systolic pressure of 209. All of symptoms have resolved and MRI brain completed, no acute changes. Patient reports feeling at baseline. Getting BP mgmt, plan for echo per primary notes. Carotid doppler reviewed, no high grade stenosis noted. Allergies No Known Allergies Allergy (Verified 05/16/18 16:43) Active Medications Acetaminophen (Tylenol -) 650 mg PO Q12H PRN PRN Reason: Fever Or Pain Last Admin: 05/17/18 21:16 Dose: 650 mg Amlodipine Besylate (Norvasc -) 5 mg PO DAILY [facility] Last Admin: 05/18/18 09:00 Dose: 5 mg Aspirin (Asa -) 81 mg PO DAILY [facility] Last Admin: 05/18/18 09:00 Dose: 81 mg Atorvastatin Calcium (Lipitor -) 10 mg PO HS [facility] Last Admin: 05/18/18 21:29 Dose: 10 mg Losartan Potassium (Cozaar -) 50 mg PO DAILY [facility] Last Admin: 05/18/18 09:00 Dose: 50 mg Pancrelipase (Creon Dr 6,000 Units Capsule) 1 cap PO TIDCM [facility] Last Admin: 05/19/18 08:08 Dose: 1 cap Tamsulosin HCl (Flomax -) 0.4 mg PO DAILY [facility] Last Admin: 05/18/18 08:59 Dose: 0.4 mg PHYSICAL EXAMINATION Vital Signs Period Temp Pulse Resp BP Sys/Salcido Pulse Ox Last 24 Hr 97.7 F-98.1 F 50-67 16-20 124-168/67-85 GENERAL: Awake Alert HEAD: Normal with no signs of trauma. EYES: EOMI NECK: Supple LUNGS: CTA B/L HEART: Bradycardia No MRG S1S2 ABDOMEN: Soft, NDNT MUSCULOSKELETAL: FROM throughout UPPER EXTREMITIES: No CCE LOWER EXTREMITIES: No CCE NEUROLOGICAL: Cranial nerves II-XII intact. Normal speech. Moves all extremities equally, sensory intact, finger to nose normal PSYCHIATRIC: Cooperative. Good eye contact. Appropriate mood and affect. SKIN:No rashes or bruises CBCD WBC 3.2 K/mm3 (4.0-10.0) L 05/19/18 05:50 RBC 4.51 M/mm3 (4.00-5.60) 05/19/18 05:50 Hgb 11.8 GM/dL (11.7-16.9) 05/19/18 05:50 Hct 36.8 % (35.4-49) 05/19/18 05:50 MCV 81.6 fl (80-96) 05/19/18 05:50 MCHC 32.2 g/dl (32.0-35.9) 05/19/18 05:50 RDW 14.1 % (11.9-15.9) 05/19/18 05:50 Plt Count 147 K/MM3 (134-434) 05/19/18 05:50 MPV 7.9 fl (7.5-11.1) 05/19/18 05:50 CMP Sodium 135 mmol/L (136-145) L 05/19/18 05:50 Potassium 4.4 mmol/L (3.5-5.1) 05/19/18 05:50 Chloride 102 mmol/L (98-107) 05/19/18 05:50 Carbon Dioxide 25 mmol/L (21-32) 05/19/18 05:50 Anion Gap 8 MMOL/L (8-16) 05/19/18 05:50 BUN 21 mg/dL (7-18) H 05/19/18 05:50 Creatinine 0.8 mg/dL (0.55-1.3) 05/19/18 05:50 Creat Clearance w eGFR > 60 (>60) 05/19/18 05:50 Random Glucose 87 mg/dL (74-106) 05/19/18 05:50 Calcium 8.7 mg/dL (8.5-10.1) 05/19/18 05:50 Total Bilirubin 0.7 mg/dL (0.2-1) 05/16/18 17:48 AST 15 U/L (15-37) 05/16/18 17:48 ALT 19 U/L (13-61) 05/16/18 17:48 Alkaline Phosphatase 72 U/L (45-117) 05/16/18 17:48 Total Protein 7.6 g/dl (6.4-8.2) 05/16/18 17:48 Albumin 4.2 g/dl (3.4-5.0) 05/16/18 17:48 CARDIAC ENZYMES Creatine Kinase 50 IU/L (26-308) 05/16/18 17:48 Troponin I < 0.02 ng/ml (0.00-0.05) 05/16/18 22:58 ASSESSMENT/PLAN: Pt is an 87 y/o gentleman with a significant past medical history of HTN 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 Possibly hypertensive urgency, admitted for MRI was negative. Goal bp < 140/90 for now, <130/80 as outpatient. Echo pending, carotid reviewed and without high grade stenosis. Neurologically stable at this time without deficits.
[2018-05-19] MEDS: amLODIPine BESYLATE 5 MG TABLET (FP) PO SCH (09:46)
[2018-05-19] MEDS: ASPIRIN 81 MG CHEWABLE TABLETS PO SCH (09:46)
[2018-05-19] MEDS: LOSARTAN POTASSIUM 50 MG TABLET (FP) PO SCH (09:46)
[2018-05-19] MEDS: TAMSULOSIN HCL 0.4 MG CAP PO SCH (09:46)
--- NOTE | 2018-05-19 10:40 | CONSULT ---
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 Possibly hypertensive urgency, admitted for MRI was negative. Selected Entries 05/18/18 05/18/18 05/18/18 02:00 06:00 08:55 Breakfast 75% Lunch Supper Temperature 97.8 F 97.9 F 05/18/18 05/18/18 05/18/18 10:00 13:10 18:00 Breakfast Lunch 75% Supper Temperature 98.0 F 98.1 F 97.8 F 05/18/18 05/18/18 05/19/18 21:00 22:49 05:45 Breakfast Lunch Supper 100% Temperature 97.7 F 97.7 F 05/19/18 10:16 Breakfast 100% Lunch Supper Temperature Laboratory Tests 05/19/18 05:50 WBC 3.2 L History Source: Patient Limitations to Obtaining History: No Limitations - Smoking History Smoking history: Never smoked - Alcohol/Substance Use Hx Alcohol Use: No History - Admission Reason For Visit: CEREBRAL VASCULAR ACCIDENT - Diagnostics X-ray: Report Reviewed CT Scan: Report Reviewed MRI: Report Reviewed - General Mental Status: Alert and Oriented, Awake and Alert, Able to Follow Commands Attention: Intact Ability to Follow Directions: Excellent Head/Neck Control: WFL - Hearing Hearing: Normal Speech Evaluation - Communication Primary Language: [place] Communication: Yes: Within Normal Limits Oral Expression Ability: Yes: No Impairment - Speech Production Able to Make Needs Known: Yes: WNL Intelligibility: Yes: WNL - Speech Characteristics Voice Loudness: Normal Voice Pitch: Yes: Normal Voice Phonatory-based Quality: Yes: Normal Speech Pattern: Normal Speech Clarity: < 100% Nasal Resonance: Normal Articulation: Yes: Precise - Language/Auditory Comprehension Follows: Yes: 2 Stage Simple Commands Observation: Able to respond to yes/no queries: Yes, Yes/No Confusion: No, Comprehends Conversational Speech: Yes - Language/Verbal Expression Able to Respond to Simple Queries: Yes: WNL Able to Communicate Wants and Needs: Yes: WNL Functional Communication Status: Yes: WNL - Swallow Evaluation/Bedside Assessment Current Nutritional Intake: Regular, Thin Liquids Oral Secretions: Yes: WFL Dentition: Yes: Adequate Facial Symmetry at Rest: Symmetrical Facial Symmetry on Retraction: Symmetrical Facial Movement: Controlled Sensation: Normal Against Resistance Opening: Normal Against Resistance Closing: Normal Pucker Lips: Normal Smile: Normal Lingual Movement: Normal, Symmetric Lingual Speed of Movement: Normal Lingual Movement Strgth Against Opposition: Normal Lingual Movement Characteristics: Normal Velopharyngeal Movement: Normal Laryngeal Elevation: WFL Laryngeal Movement: Able to Palpate Rate of Intake: WFL Bolus Size: WFL Labial Seal: WFL Chewing: WFL Oral Prep Time: WFL A-P Transit: WFL Pocketing: None Timing of Swallow: WFL Coughing/Throat Clear: No Change in Voice: No Recommendations - Speech Evaluation, Impression/Plan Impression: Speech,swallowing,language intact. Pt tolerating diet with good appetite. - Dysphagia Impressions/Plan Swallowing Skills: WF Dysphagia Impressions: No Impairment *Silent aspiration: cannot be R/O at bedside - Recommendations Diet Consistency: Regular Medication Administration: Whole with water Liquids: Thin Liquids
--- NOTE | 2018-05-19 12:21 | ECHO ---
Name: CHARLETTE SWEET Exam:Adult Echocardiogram Study Date: 05/19/2018 10:18 AM Age: 87 yrs Reason For Study: R/O CVA Height: 65 in Weight: 132 lb BSA: 1.7 m2 MMode/2D Measurements & Calculations IVSd: 0.90 cm Ao root diam: 3.4 cm LVIDd: 4.7 cm LA dimension: 3.2 cm LVIDs: 3.1 cm LVPWd: 0.91 cm LVPWs: 1.5 cm EDV(Teich): 100.1 ml ESV(Teich): 38.0 ml Doppler Measurements & Calculations MV E max tony: 60.7 cm/sec Ao V2 max: 142.1 cm/sec MV A max tony: 83.4 cm/sec Ao max P.1 mmHg MV E/A: 0.73 AI P1/2t: 588.2 msec MV dec time: 0.31 sec AI max tony: 521.9 cm/sec LV V1 max P.6 mmHg AI max P.0 mmHg LV V1 max: 63.7 cm/sec AI dec slope: 259.9 cm/sec2 MR max tony: 319.8 cm/sec TR max tony: 270.7 cm/sec MR max P.9 mmHg TR max P.4 mmHg PA V2 max: 89.6 cm/sec Med Peak E' Tony: 5.2 cm/sec PA max P.2 mmHg Med E/e': 11.8 Lat Peak E' Tony: 5.4 cm/sec Lat E/e': 11.3 Procedure A complete two-dimensional transthoracic echocardiogram was performed (2D, M-mode, Doppler and color flow Doppler). Left Ventricle The left ventricle is normal in size. Left ventricular systolic function is normal. Ejection Fraction = 60- 65%. E/A reversal and TDI reveals mildly impaired relaxation with normal filling pressure (E/E' 11). No regional wall motion abnormalities noted. Right Ventricle The right ventricle is normal size. The right ventricular systolic function is normal. RV systolic TD I is 14 cm/s. Atria The left atrial size is normal. Right atrial size is normal. Mitral Valve The mitral valve is normal in structure and function. There is trace mitral regurgitation. Tricuspid Valve The tricuspid valve is normal in structure and function. There is mild tricuspid regurgitation. Pulmo nary artery systolic pressure is at least 31 mmHg assuming RA pressure of 3 mmHg. Aortic Valve There is mild aortic sclerosis.;. No aortic regurgitation is present. Pulmonic Valve The pulmonic valve is not well visualized. Great Vessels The aortic root is normal size. Pericardium/Pleura There is no pericardial effusion. Interpretation Summary The left ventricle is normal in size. Left ventricular systolic function is normal. No regional wall motion abnormalities noted. Ejection Fraction = 60-65%. E/A reversal and TDI reveals mildly impaired relaxation with normal filling pressure (E/E' 11) The right ventricular systolic function is normal. The left atrial size is normal. Right atrial size is normal. There is trace mitral regurgitation. There is mild tricuspid regurgitation. Pulmonary artery systolic pressure is at least 31 mmHg assuming RA pressure of 3 mmHg There is mild aortic sclerosis. There is no pericardial effusion. Previous study is not available for comparison Jeremías Davidson MD 05/19/2018 12:20 PM
--- NOTE | 2018-05-19 14:45 | PN ---
Teaching Attending Note Name of Resident: Ceasar Keenan ATTENDING PHYSICIAN STATEMENT I saw and evaluated the patient. I reviewed the resident's note and discussed the case with the resident. I agree with the resident's findings and plan as documented. SUBJECTIVE:asymptomatic. denies CP, SOB, fever, chills, N/V/C/D, blurred vision or slurred speech. OBJECTIVE: Last Vital Signs Temp Pulse Resp BP Pulse Ox 98.5 F 62 18 133/72 93 L 05/19/18 10:00 05/19/18 10:00 05/19/18 10:00 05/19/18 10:00 05/17/18 10:00 General NAD CV S1 S2 + Neuro CN grossly intact. strength/sensation equal in all 4 extremities ASSESSMENT AND PLAN: 87yo M with PMH HTN, dyslipidemia, Hemorrhagic CVA, BPH and pancreas insufficiency presented to the ER with HEART, dizzyness and slurred speech that started at 5AM and since resolved. Pt BP was found to be 209/96 1. HTN emergency- r/o CVA. symptoms have resolved. BP improved. cont norvasc and losartan. MRI and carotid doppler neg for significant disease. cont asa/ statin 2. asymptomatic bradycardia- improves with light activity. Echo not showing any WMA. EKG iwthout heart block or TX prolongation. can f/u with cardio as outaptient 3. BPH- cont flomax 4. pancreas insuff- cont creon 5. DVT ppx- EAM 6. d/c home. stressed importance of medication compliance and follow up
--- NOTE | 2018-05-19 14:53 | DS ---
Physical Exam: SUBJECTIVE: Patient seen and examined at bedside. No acute events overnight. OBJECTIVE: Vital Signs Period Temp Pulse Resp BP Sys/[place] Pulse Ox Last 24 Hr 97.7 F-98.5 F 50-62 16-18 124-143/67-77 PHYSICAL EXAM GENERAL: AAOx3 NAD Pleasant HEAD: NC/AT EYES: EOMI NECK: Supple LUNGS: CTA B/L HEART: Bradycardia No MRG S1S2 ABDOMEN: Soft, NDNT No HSM MUSCULOSKELETAL: FROM throughout UPPER EXTREMITIES: No CCE LOWER EXTREMITIES: No CCE NEUROLOGICAL: Cranial nerves II-XII intact. Normal speech. Normal gait. PSYCHIATRIC: Cooperative. Good eye contact. Appropriate mood and affect. SKIN:No rashes or bruises LABS Laboratory Results - last 24 hr 05/18/18 05/19/18 05/19/18 17:07 05:50 05:50 WBC 3.2 L RBC 4.51 Hgb 11.8 Hct 36.8 MCV 81.6 MCH 26.3 MCHC 32.2 RDW 14.1 Plt Count 147 MPV 7.9 Sodium 135 L Potassium 4.4 Chloride 102 Carbon Dioxide 25 Anion Gap 8 BUN 21 H Creatinine 0.8 Creat Clearance w eGFR > 60 POC Glucometer 126 Random Glucose 87 Calcium 8.7 Phosphorus 3.6 Magnesium 2.1 05/19/18 05/19/18 06:25 11:46 WBC RBC Hgb Hct MCV MCH MCHC RDW Plt Count MPV Sodium Potassium Chloride Carbon Dioxide Anion Gap BUN Creatinine Creat Clearance w eGFR POC Glucometer 92 106 Random Glucose Calcium Phosphorus Magnesium HOSPITAL COURSE: Date of Admission:05/16/18 Pt presented to [facility] c/o nausea, vomiting, blurry, weakness, and slurred speech in AM when he woke up.Pt presented to hospital via ambulance where systolic BP noted to be in low 200's. Head CT performed which did not indicate any acute intracranial pathology. please see report for details. ECHO and Carotid were also performed which did not reveal any acute pathology. Pt's BP was controlled with medications. Pt was also noted to have a low heart rate ranging from the upper 30's to the mid 40's. Pt's chronotropic response was tested and found to be WNL. Pt D/C on Amlodipine in addition to home medications. Date of Discharge: 05/19/18 Minutes to complete discharge: 35 Discharge Summary Reason For Visit: CEREBRAL VASCULAR ACCIDENT Current Active Problems BPH (benign prostatic hyperplasia) (Chronic) Pancreatic insufficiency (Chronic) Symptomatic sinus bradycardia (Chronic) Condition: Improved - Instructions Diet, Activity, Other Instructions: You were admitted to the hospital for elevated blood pressure . You were started on a new medication called Norvasc 5 mg daily . Please take this medication daily as prescribed in addition to all of your other medications. Please continue to take all of your medications as before admission . Please monitor your blood pressure daily. Please follow up with the following physicians in 1 week: Your Primary Care Physician. You Manager Managed Care, a referral has been provided to you in your discharge papers Your Neurologist. A referral has been provided for you in your discharge papers. If you begin to experience similar symptoms as you did when you first came to the hospital, such as blurry vision, headache, chest pain, shortness of breath, nausea, or vomiting, please return to the Hospital immediately or call 911 Referrals: Jeremías Davidson MD [Staff Physician] - 1 Week Alexandre Santoro MD [Staff Physician] - 1 Week Disposition: HOME - Home Medications Comprehensive Discharge Medication List: Ambulatory Orders Aspirin 81 mg PO DAILY 05/16/18 Celecoxib 200 mg PO DAILY 05/16/18 Docusate Sodium 100 mg PO DAILY 05/16/18 Lipase/Protease/Amylase [Creon Dr 6,000 Units Capsule] 1 cap PO TIDCM 05/16/18 Losartan Potassium 50 mg PO DAILY 05/16/18 Simvastatin 20 mg PO HS 05/16/18 Tamsulosin HCl 0.4 mg PO DAILY 05/16/18 Amlodipine Besylate [Norvasc -] 5 mg PO DAILY #30 tablet 05/19/18 This patient is new to me today: No Emergency Visit: Yes ED Registration Date: 05/16/18 Care time: The patient presented to the Emergency Department on the above date and was hospitalized for further evaluation of their emergent condition. Critical Care patient: No - Discharge Referral Referred to [facility] Med P.C.: No
[2018-05-19 15:15] VITALS: BP 138/72; PULSE 57; TEMP 97.5
--- NOTE | 2018-08-01 20:33 | EKG ---
Test Reason : Blood Pressure : / mmHG Vent. Rate : 045 BPM Atrial Rate : 045 BPM P-R Int : 252 ms QRS Dur : 094 ms QT Int : 470 ms P-R-T Axes : 057 051 068 degrees QTc Int : 406 ms SINUS BRADYCARDIA WITH 1ST DEGREE A-V BLOCK VOLTAGE CRITERIA FOR LEFT VENTRICULAR HYPERTROPHY ABNORMAL ECG WHEN COMPARED WITH ECG OF 16-MAY-2018 19:32, PREMATURE VENTRICULAR COMPLEXES ARE NO LONGER PRESENT MA INTERVAL HAS INCREASED Confirmed by JA CASRTO, RYLEE ([id number]) on 08/01/2018 8:32:40 PM Referred By: Confirmed By:RYLEE PERES MD
== END 2018-05-19 15:51 | disposition home or self-care (01) | DRG 305 ==
LOC: JER 15:56 → JERBED 19:11 → J4S 21:24
PROVIDERS: ADMIT Internal Medicine; ATTEND Internal Medicine
DX: I16.1 Hypertensive emergency (principal); K86.89 Other specified diseases of pancreas; R00.1 Bradycardia, unspecified; N40.0 Benign prostatic hyperplasia without lower urinary tract symptoms; Z86.73 Personal history of transient ischemic attack (TIA), and cerebral infarction without residual deficits; R29.701 NIHSS score 1; I44.0 Atrioventricular block, first degree; D72.819 Decreased white blood cell count, unspecified; E78.5 Hyperlipidemia, unspecified
CPT/HCPCS: 36415; 70450-TC; 70551-TC; 71045-TC-FY; 80048; 80053; 80061; 81003; 82465; 82550; 82962; 83036; 83718; 83721; 83735; 84100; 84478; 84484; 85025; 85027; 85610; 85730; 86850; 86900; 86901; 93005; 93010; 93306-TC; 93880-TC; 97116-GP; 97161-GP; 99284-25; J0131; J7030